=== PATIENT | female | born 1945 | race Caucasian/White ===

== ENCOUNTER 2019-12-24 12:08 | Emergency (ER) | payer MEDICARE ==
[~2019-12-24] VITALS: Ht 157.5 cm; Wt 86.7 kg
--- NOTE | 2019-12-24 12:51 | NUR ---
PT SENT FROM [facility] FOR "FOOD IMPACTION IN ESOPHAGUS". PT STATES SHE CANT DRINK OR EAT ANYTHING WITHOUT EXTREME PAIN IN THROAT. PT HERE TO SEE GI AND PERHAPS GET SCOPED. PT ACCOMPANIED BY GRANDSON. PT IS NOT IN DISTRESS AT THIS MOMENT. PT 02 AT 98% ON ROOM AIR.
--- NOTE | 2019-12-24 12:54 | NUR ---
REPORT RECEIVED FROM KRISSY BOONE.
--- NOTE | 2019-12-24 13:21 | NUR ---
edmd at bedside evaluating at this time.
[2019-12-24] MEDS ORDERED: PROPOFOL 10 MG/ML, 20ML ONE (13:27)
[2019-12-24] MEDS ORDERED: SODIUM CHLORIDE FLUSH 10ML SYR IVF ONE (13:30)
[2019-12-24] MEDS ORDERED: PROPOFOL 10 MG/ML, 20ML IVPush ONE (13:30)
[2019-12-24] MEDS ORDERED: SODIUM CHLORIDE 0.9% 1,000ML IVBOLUS ONE (13:30)
--- NOTE | 2019-12-24 13:45 | NUR ---
piv est on r ac with no complications. pt tolerated well.
[2019-12-24] MEDS ORDERED: FENTANYL PF 100 MCG/2ML ONE (13:46)
[2019-12-24] MEDS ORDERED: MIDAZOLAM 1 MG/ML, 5ML ONE (13:46)
--- NOTE | 2019-12-24 13:55 | NUR ---
PT AND DR SIGNED ON CONSENT FORM FOR ENDOSCOPY AT THIS TIME.
--- NOTE | 2019-12-24 14:08 | NUR ---
ENDOSCOPY DONE AT BEDSIDE. PT TOLERATED WELL.
--- NOTE | 2019-12-24 14:14 | NUR ---
PT IS BASELINE NOW. PT'S AOX4. RESPS EVEN AND UNLABORED. PT'S GRANDSON AT BEDSIDE.
--- NOTE | 2019-12-24 15:03 | NUR ---
pt sitting on gurney. pt's aox4. resps even and unlabored. bp/spo2 monitors in place. call light within reach. pt's family member at bedside.
[2019-12-24 15:14] VITALS: BP 157/71
--- NOTE | 2019-12-24 15:30 | NUR ---
Patient/Caregiver given discharge instructions and they have confirmed that they understand the instructions. Patient ambulatory with steady gait. PT LEFT WITH ALL PERSONAL BELONGINGS.
== END 2019-12-24 15:32 | disposition home or self-care (01) ==
LOC: ED 15:15
DX: T18.128A Food in esophagus causing other injury, initial encounter (principal); X58.XXXA Exposure to other specified factors, initial encounter; Y93.89 Activity, other specified; Y92.89 Other specified places as the place of occurrence of the external cause; Y99.8 Other external cause status
CPT/HCPCS: 43247; 96360; 96361; 99285; J7030; J2250; J3010

== ENCOUNTER 2020-07-07 12:14 | Outpatient (CLI) | payer MEDICARE | END 2020-07-07 23:59 | disposition home or self-care (01) | LOC: RAD 12:14 | PROVIDERS: ATTEND Neurological Surgery | DX: R13.10 Dysphagia, unspecified (principal) | CPT/HCPCS: 74230 ==